=== PATIENT | male | born 1940 | race Caucasian/White ===

== ENCOUNTER 2016-08-03 10:32 | Outpatient (CLI) | payer MEDICARE, BC | END 2016-08-03 10:42 | LOC: POD 10:32 | PROVIDERS: ATTEND Podiatrist Public Medicine | DX: B35.1 Tinea unguium (principal); L60.0 Ingrowing nail; M79.674 Pain in right toe(s); M79.675 Pain in left toe(s) | CPT/HCPCS: 11721; G0463 ==

== ENCOUNTER 2016-11-30 08:21 | Outpatient (CLI) | payer MEDICARE, BC | END 2016-11-30 08:22 | LOC: POD 08:21 | PROVIDERS: ATTEND Podiatrist Public Medicine | DX: E11.9 Type 2 diabetes mellitus without complications (principal); B35.1 Tinea unguium; M79.674 Pain in right toe(s); M79.675 Pain in left toe(s); L60.0 Ingrowing nail | CPT/HCPCS: 11721; G0463 ==

== ENCOUNTER 2016-12-09 19:23 | Emergency (ER) | payer MEDICARE, BC ==
[2016-12-09] MEDS ORDERED: ONDANSETRON HCL/PF 4 MG/ 2ML VIAL ONE (19:59)
[2016-12-09] MEDS: ASPIRIN 81 MG CHEW TAB PO ONE (20:00)
[2016-12-09] MEDS: ONDANSETRON HCL/PF 4 MG/ 2ML VIAL IVP ONE (20:05)
[2016-12-09] MEDS: 0.9 % SODIUM CHLORIDE 1,000 ML IV ONE (20:16)
[2016-12-09 20:28] LABS: MEAN CORPUSCULAR HEMOGLOBIN 28.8 pg (28.0-34.0); MEAN CORPUSCULAR VOLUME 85.4 fl (80.0-100.0)
[2016-12-09 20:28] LABS: eGFR (African) > 60; eGFR (Non-African) > 60
[2016-12-09 20:29] LABS: EOSINOPHILS % 1.7 % (0.0-6.8); MONOCYTES % 4.3 % (0.0-11.0)
[2016-12-09 20:30] LABS: BASOPHILS % 0.2 (0.0-1.5)
[2016-12-09] MEDS: INSULIN REGULAR, HUMAN 100 UNIT/ML 3ML VIAL SQ ONE (20:50)
--- NOTE | 2016-12-09 20:52 | Diagnostic Imaging Report ---
CHONG MEJIA~ [facility] [place] [facility] [address] [facility] [address] [place], [place]. [address] ~ ~ ~ ~ Report Submission Date: Dec 09, 2016 8:08:01 PM CDT Patient ~ Study Name: FER MERCHANT ~ Date: Dec 09, 2016 7:53:57 PM CDT ~ Modality Type: CR Gender: M ~ Description: CHEST : 40 ~ Institution: [facility] [place] [facility] Physician: CHONG MEJIA ~ ~ ~ ~ Portable chest History: Chest pain Findings: Low lung volumes are observed without confluent infiltrate or pleural effusion. Heart size and pulmonary vascularity are normal. Osseous structures are unremarkable. Impression: Low lung volumes. ~ Electronically signed on Dec 09, 2016 8:08:01 PM CDT by: Juan Diego SMALLWOOD
--- NOTE | 2016-12-09 21:17 | ED Physician Documentation ---
General Adult - HISTORIAN Historian: patient - HPI Stated Complaint: vomiting/diaphoresis Chief Complaint: General Adult Timing: better Severity: moderate Further Comments: yes (Pt is a 76 yo male with PMHx DMII on orals, and HTN. Pt was about to run a Bingo game, when he became weak and diaphoretic and had a near-syncopal episode. Pt then vomited and says he felt well again. Pt was not in an especially hot environment and had not been over-exerting himself. On presentation, pt stated that he felt well again, but then had a second episode of diaphoresis and vomiting in ER. Episode passed, and pt then complained only of some weakness. No sob, no chest pain during episodes. Pt initially thought his blood sugar might be low, and he ate a large candy bar. Glucose was elevated at 346 on presentation. Family notes that pt has been unusually irritible in the past week and seemed to be forgetting or ignoring things, like being careful about when to take his meds, which seemed to them a change in behavior.) - ROS CONST: weakness, other (diaphoresis) EYES/ENT: none CVS/RESP: none GI/: vomiting, nausea MS/SKIN/LYMPH: none - PAST HX Past History: hypertension, other (DMII) Allergies/Adverse Reactions: Allergies Allergy/AdvReac Type Severity Reaction Status Date / Time No Known Drug Allergies Allergy Verified 12/09/16 20:20 - SOCIAL HX Smoking History: non-smoker - FAMILY HX Family History: No - REVIEWED ASSESSMENTS Nursing Assessment Reviewed: Yes Vitals Reviewed: Yes Progress - Progress Progress: ASA 325 mg po Zofran 4 mg IV NS 250 cc IV Insulin Regular 8 units sc CXR: Low lung volumes are observed without confluent infiltrate or pleural effusion. Heart size and pulmonary vascularity are normal. Osseous structures are unremarkable. Transfer to [facility], cardiology, Dr. Bashir. - EKG/XRAY/CT EKG: NSR (LAD; lateral ischemia with 1-2 mm depressions in V3, V4, V5.) ED Results Lab/Radiology - Orders Orders: ED Orders Category Date Time Status Continuous EKG monitoring Q30M Care 12/09/16 19:42 Active Continuous Pulse Oximetry Q30M Care 12/09/16 19:42 Active CHEST 1 VIEW [RAD] Stat Exams 12/09/16 19:42 Ordered CBC/PLATELET/DIFF Routine Lab 12/09/16 19:42 Ordered CMP Routine Lab 12/09/16 20:09 Received CREATINE KINASE Routine Lab 12/09/16 20:09 Received D DIMER Stat Lab 12/09/16 20:08 Received NT-proBNP Stat Lab 12/09/16 20:08 Received PT-INR Routine Lab 12/09/16 20:08 Received TROPONIN I (cTnI) Stat Lab 12/09/16 20:08 Received UA [URINALYSIS] Routine Lab 12/09/16 Ordered 0.9 % Sodium Chloride [Normal Saline] 1,000 ml Med 12/09/16 20:08 Active IV Q2H Aspirin Med 12/09/16 19:42 Discontinued 324 mg PO NOW ONE Ondansetron HCl/Pf [Zofran 4 mg/2 ml] Med 12/09/16 19:59 Discontinued 4 mg .ROUTE .STK-MED ONE Ondansetron HCl/Pf [Zofran 4 mg/2 ml] Med 12/09/16 20:01 Discontinued 4 mg IVP NOW ONE Oxygen Daily Oxygen 12/09/16 19:45 Ordered EKG WITH COMPARISON Stat Ther 12/09/16 19:42 Ordered General Adult Physical Exam - PHYSICAL EXAM GENERAL APPEARANCE: mild distress EENT: eye inspection normal, pharynx normal NECK: normal inspection, supple RESPIRATORY: no resp distress, chest non-tender, breath sounds normal CVS: reg rate & rhythm, heart sounds normal ABDOMEN: soft, no organomegaly, normal bowel sounds BACK: normal inspection, no CVA tenderness SKIN: warm/dry, normal color EXTREMITIES: non-tender, normal range of motion, no evidence of injury NEURO: oriented X3, motor nml, sensation nml Discharge Clincal Impression: cardiac ischemia Referrals: Roldan Sibley MD [Primary Care Provider] - Condition: Stable Disposition: XFER SHT-TRM HOSP Decision to Admit: NO Decision Time: 21:14
[2016-12-09 21:55] VITALS: BP 135/82
[2016-12-10 05:52] LABS: NEUTROPHILS # 5.9 # k/uL (1.4-7.7)
[2016-12-10 06:24] LABS: APPEARANCE,URINE CLEAR (CLEAR); COLOR,URINE YELLOW (YELLOW); OCCULT BLOOD,URINE TRACE-LYSED (NEGATIVE); PH URINE 5.5 (5.0 - 8.0); UROBILINOGEN URINE 0.2 Eu (0.2-1.0)
== END 2016-12-09 21:25 | disposition short-term general hospital (02) ==
LOC: ED 19:23
DX: I25.9 Chronic ischemic heart disease, unspecified (principal)
CPT/HCPCS: 71010; 80053; 81002; 82550; 83880; 84484; 85025; 85379; 85610; 93005; J1815; J2405; J7030; 96361; 96374; 96375; 99283; S1016

== ENCOUNTER 2017-02-15 08:25 | Outpatient (CLI) | payer MEDICARE, BC | END 2017-02-15 08:26 | LOC: POD 08:25 | PROVIDERS: ATTEND Podiatrist Public Medicine | DX: B35.1 Tinea unguium (principal); E11.9 Type 2 diabetes mellitus without complications; L60.0 Ingrowing nail; M79.675 Pain in left toe(s); M79.674 Pain in right toe(s) | CPT/HCPCS: 11721; G0463 ==

== ENCOUNTER 2017-05-31 08:25 | Outpatient (CLI) | payer MEDICARE, BC | END 2017-05-31 08:26 | LOC: POD 08:25 | PROVIDERS: ATTEND Podiatrist Public Medicine | DX: B35.1 Tinea unguium (principal); E11.9 Type 2 diabetes mellitus without complications; L60.0 Ingrowing nail; M79.674 Pain in right toe(s); M79.675 Pain in left toe(s) | CPT/HCPCS: 11721; G0463 ==

== ENCOUNTER 2017-06-21 10:51 | Outpatient (CLI) | payer MEDICARE, BC ==
[2017-06-21 11:09] LABS: BASOPHILS % 0.5 (0.0-1.5); EOSINOPHILS % 2.7 % (0.0-6.8); MEAN CORPUSCULAR HEMOGLOBIN 29.4 pg (28.0-34.0); MEAN CORPUSCULAR VOLUME 86.7 fl (80.0-100.0); MONOCYTES % 4.8 % (0.0-11.0); NEUTROPHILS # 5.7 # k/uL (1.4-7.7)
[2017-06-21 11:44] LABS: eGFR (African) > 60; eGFR (Non-African) > 60
== END 2017-06-21 14:10 ==
LOC: LAB 10:51
PROVIDERS: ATTEND Family Medicine
DX: I10 Essential (primary) hypertension (principal)
CPT/HCPCS: 36415; 80053; 85025

== ENCOUNTER 2017-09-06 08:43 | Outpatient (CLI) | payer MEDICARE, BC | END 2017-09-06 08:44 | LOC: POD 08:43 | PROVIDERS: ATTEND Podiatrist Public Medicine | DX: B35.1 Tinea unguium (principal); E11.9 Type 2 diabetes mellitus without complications; L60.0 Ingrowing nail; M79.674 Pain in right toe(s); M79.675 Pain in left toe(s) | CPT/HCPCS: 11721; G0463 ==

== ENCOUNTER 2017-12-06 08:58 | Outpatient (CLI) | payer MEDICARE, BC | END 2017-12-06 09:00 | LOC: POD 08:58 | PROVIDERS: ATTEND Podiatrist Public Medicine | DX: B35.1 Tinea unguium (principal); E11.9 Type 2 diabetes mellitus without complications; L60.0 Ingrowing nail; M79.674 Pain in right toe(s); M79.675 Pain in left toe(s) | CPT/HCPCS: 11721; G0463 ==

== ENCOUNTER 2017-12-27 09:28 | Outpatient (CLI) | payer MEDICARE, BC ==
[2017-12-27 09:49] LABS: MEAN CORPUSCULAR VOLUME 89.5 fl (80.0-100.0)
[2017-12-27 09:50] LABS: BASOPHILS % 0.5 (0.0-1.5); EOSINOPHILS % 2.5 % (0.0-6.8); MONOCYTES % 5.6 % (0.0-11.0); NEUTROPHILS # 5.6 # k/uL (1.4-7.7)
[2017-12-27 10:15] LABS: eGFR (African) > 60; eGFR (Non-African) > 60
== END 2017-12-27 09:30 ==
LOC: LAB 09:28
PROVIDERS: ATTEND Family Medicine
DX: I10 Essential (primary) hypertension (principal); E11.9 Type 2 diabetes mellitus without complications
CPT/HCPCS: 36415; 80053; 83036; 85025

== ENCOUNTER 2018-06-13 10:15 | Outpatient (CLI) | payer MEDICARE, BC ==
[2018-06-13 11:06] LABS: eGFR (Non-African) > 60
== END 2018-06-13 10:17 ==
LOC: LAB 10:15
PROVIDERS: ATTEND Family Medicine
DX: I10 Essential (primary) hypertension (principal)
CPT/HCPCS: 36415; 80048